=== PATIENT | male | born 1980 | race Native Hawaiian/Other Pacific Islander ===

== ENCOUNTER → 2020-12-12 | Emergency (ER) | payer BC ==
[~2020-12-12] VITALS: Ht 187.9 cm; Wt 100.0 kg
[~2020-12-12] MED LIST: KETOROLAC 60 MG/2 ML VIAL IM ONE; ORPHENADRINE 60 MG/2 ML (NORFLEX) AMP (ED ONLY) IM ONE; PRD20T PO; TRAM-42 PO
--- NOTE | 2020-12-12 14:06 | ED Back Pain ---
General Chief Complaint: Back Problems Stated Complaint: BACK PAIN Nursing Triage Note: Pt ambulatory into ER with complaint of back pain since yesterday. Pt states that he was playing with his big dog and also lifting kids up into tire swing. Pt states that as the day progressed his pain worsened. Pt states that he tried to go to work this AM and wasn't able to tolerate it. Pain at a 9/10. Source of Information: Patient Exam Limitations: No Limitations History of Present Illness Date Seen by Provider: Dec 12, 2020 Time Seen by Provider: 14:05 Initial Comments Midline nonradiating low back pain that began last night. Rates pain 9 out of 10. Does not radiate down either leg. No loss of bowel or bladder control no loss of sensation of genitals no history of IV drug use no history of cancer. Just moved here from [place]. Location: Lumbar Spine, Paraspinous Muscles Timing/Duration: 1-2 Days Severity: Moderate Pain/Injury Location: Back Method of Injury: Unknown Associated Symptoms: denies symptoms Allergies and Home Medications Allergies Coded Allergies: No Known Drug Allergies (Unverified , 12/12/20) Patient Home Medication List Home Medication List Reviewed: Yes Review of Systems Constitutional: see HPI EENTM: see HPI Respiratory: no symptoms reported Cardiovascular: no symptoms reported Genitourinary: no symptoms reported Musculoskeletal: no symptoms reported Skin: no symptoms reported Psychiatric/Neurological: No Symptoms Reported Past Ltyripe-Ilkwye-Rqueyr Hx Patient Social History Tobacco Use?: Yes Tobacco type used: Cigarettes Smoking Status: Current Everyday Smoker Use of E-Cig and/or Vaping dev: No Substance use?: Yes Substance type: Marijuana Alcohol Use?: Yes Alcohol type: Beer Alcohol Frequency: Daily Pt feels they are or have been: No Immunizations Up To Date Influenza Vaccine Up-to-Date: No; Not Current Second COVID19 Vaccination Adiel: 11/28/20 COVID19 Vaccine Composition Molder: Moderna Physical Exam Vital Signs Vital Signs - First Documented 12/12/20 12:52 Temp 36.6 Pulse 76 Resp 18 B/P (MAP) 157/97 (117) Pulse Ox 98 O2 Delivery Room Air Capillary Refill : Less Than 3 Seconds Height, Weight, BMI Height: '" Weight: lbs. oz. kg; 28.00 BMI Method: General Appearance: No Apparent Distress, WD/WN HEENT: PERRL/EOMI, TMs Normal Neck: Full Range of Motion, Normal Inspection Respiratory: No Accessory Muscle Use, No Respiratory Distress Gastrointestinal: Normal Bowel Sounds, Non Tender, Soft Back: Normal Inspection Extremity: Normal Capillary Refill, Normal Inspection Neurologic/Psychiatric: Alert, Oriented x3 Skin: Normal Color, Warm/Dry Progress/Results/Core Measures Results/Orders My Orders Orders - ARNAV CRISTINA APRN Ketorolac Injection (Toradol Injection) (12/12/20 14:00) Orphenadrine Inj (Ed Only) (Norflex Inje (12/12/20 14:00) Lumbar Spine - 2-3 Views (12/12/20 14:04) Medications Given in ED Current Medications Medications Dose Ordered Sig/Cale Route Start Time Stop Time Status Last Admin Dose Admin Ketorolac Tromethamine 60 mg ONCE ONCE IM 12/12/20 14:00 12/12/20 14:01 DC 12/12/20 14:11 60 MG Orphenadrine Citrate 60 mg ONCE ONCE IM 12/12/20 14:00 12/12/20 14:01 DC 12/12/20 14:11 60 MG Vital Signs/I&O 12/12/20 12:52 Temp 36.6 Pulse 76 Resp 18 B/P (MAP) 157/97 (117) Pulse Ox 98 O2 Delivery Room Air Blood Pressure Mean: 117 Departure Impression Primary Impression: Acute low back pain Disposition: 01 HOME, SELF-CARE Condition: Stable Departure-Patient Inst. Decision time for Depature: 14:48 Referrals: NO,LOCAL PHYSICIAN (PCP/Family) Primary Care Physician Patient Instructions: Low Back Pain (DC) Add. Discharge Instructions: 1. Make an appointment with primary care. If pain persist then may wish to order an MRI of the back. Steroids and pain medication as directed in the meantime. All discharge instructions reviewed with patient and/or family. Voiced understanding. 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
--- NOTE | 2020-12-12 14:44 | Diagnostic Imaging Report ---
INDICATION: Low back pain COMPARISON: None TECHNIQUE: 3 views of the lumbar spine FINDINGS: There is slight right convex curvature at the lumbosacral junction, but no spondylolisthesis is seen. Vertebral body heights are preserved. No acute fracture is seen. There are mild degenerative changes at L2-L3. There is mild disc height loss at L4-L5 and L5-S1. No acute fracture seen. Bilateral sacroiliac joints are patent. IMPRESSION: 1. Mild degenerative change in the lumbar spine with no acute osseous abnormality seen. Dictated by: Dictated on workstation # [id number]
[2020-12-12 16:03] VITALS: BP 158/101
== END | disposition home or self-care (01) ==
LOC: EDUNIT# 12:45 → ER 12:48
DX: M54.5 Low back pain (principal); F17.210 Nicotine dependence, cigarettes, uncomplicated
CPT/HCPCS: 72100

== ENCOUNTER 2021-02-17 19:26 | Emergency (ER) | payer BC ==
[~2021-02-17] VITALS: Ht 74 cm; Wt 99.8 kg
[~2021-02-17 19:26] MED LIST changes: -KETOROLAC 60 MG/2 ML VIAL IM ONE; -ORPHENADRINE 60 MG/2 ML (NORFLEX) AMP (ED ONLY) IM ONE
[2021-02-17 19:35] VITALS: BP 129/76
--- NOTE | 2021-02-17 19:41 | ED General ---
General Stated Complaint: LOW BP 95/52 Source of Information: Patient Exam Limitations: No Limitations History of Present Illness Date Seen by Provider: Feb 17, 2021 Time Seen by Provider: 19:36 Initial Comments To ER by private vehicle with reports of hypotension. Patient has a history of hypertension and was recently started on additional blood pressure medication. He takes lisinopril/HCTZ 40/25 mg and was recently started on hydralazine 10 mg 3 times a day. This evening he had a couple shots of 100 proof whiskey and then seemed to become unresponsive. His did CPR on him twice before he regained consciousness. He now feels a little lightheaded. His blood pressure was 95/40 then in the 70s systolic.States he drins at least a pint of alcohol a day. Timing/Duration: 1/2 Hour Severity: Moderate Allergies and Home Medications Allergies Coded Allergies: No Known Drug Allergies (Unverified , 12/12/20) Patient Home Medication List Home Medication List Reviewed: Yes Cefuroxime Axetil (Cefuroxime) 500 Mg Tablet, 500 MG PO BID Prescribed by: ARNAV CRISTINA on 02/17/212106 Potassium Chloride (Potassium Chloride) 20 Meq Tablet.er, 20 MEQ PO DAILY Prescribed by: ARNAV CRISTINA on 02/17/212117 Prednisone (Prednisone) 20 Mg Tab, 40 MG PO DAILY Prescribed by: ARNAV CRISTINA on 12/12/20 1450 Tramadol HCl (Ultram) 50 Mg Tablet, 50 MG PO Q6H PRN for PAIN-MODERATE (5-7) Prescribed by: ARNAV CRISTINA on 12/12/20 1450 Review of Systems Review of Systems Constitutional: see HPI EENTM: see HPI Respiratory: no symptoms reported Cardiovascular: no symptoms reported Genitourinary: no symptoms reported Musculoskeletal: no symptoms reported Skin: no symptoms reported Psychiatric/Neurological: No Symptoms Reported Hematologic/Lymphatic: No Symptoms Reported Immunological/Allergic: no symptoms reported Past Ormuoye-Ptprcm-Rtixck Hx Immunizations Up To Date Second COVID19 Vaccination Adiel: 11/28/20 Physical Exam Vital Signs Vital Signs - First Documented 02/17/21 19:35 Temp 36.7 Pulse 71 Resp 18 B/P (MAP) 129/76 (93) Pulse Ox 98 O2 Delivery Room Air Capillary Refill : Height, Weight, BMI Height: '" Weight: lbs. oz. kg; 28.00 BMI Method: General Appearance: No Apparent Distress, WD/WN, Other (Alert and oriented GCS 15. Pleasant. No distress. Blood pressure 122/88 heart rate 80 sinus no ectopy.) Eyes: Bilateral Eye Normal Inspection, Bilateral Eye PERRL, Bilateral Eye EOMI HEENT: PERRL/EOMI, TMs Normal Neck: Full Range of Motion, Normal Inspection Respiratory: Normal Breath Sounds, No Accessory Muscle Use, No Respiratory Distress Cardiovascular: Regular Rate, Rhythm, Normal Peripheral Pulses Gastrointestinal: Normal Bowel Sounds, Non Tender, Soft Extremity: Normal Capillary Refill, Normal Inspection Neurologic/Psychiatric: Alert, Oriented x3 Progress/Results/Core Measures Suspected Sepsis SIRS Temperature: Pulse: Respiratory Rate: Laboratory Tests 02/17/21 19:35: White Blood Count 7.0 Blood Pressure / Mean: Laboratory Tests 02/17/21 19:35: Creatinine 1.37H, INR Comment 0.9, Platelet Count 257, Total Bilirubin 1.1H Results/Orders Lab Results Laboratory Tests Test 02/17/21 19:35 02/17/21 20:06 Range/Units White Blood Count 7.0 4.3-11.0 10^3/uL Red Blood Count 4.76 4.30-5.52 10^6/uL Hemoglobin 14.9 13.3-17.7 g/dL Hematocrit 43 40-54 % Mean Corpuscular Volume 90 80-99 fL Mean Corpuscular Hemoglobin 31 25-34 pg Mean Corpuscular Hemoglobin Concent 35 32-36 g/dL Red Cell Distribution Width 14.0 10.0-14.5 % Platelet Count 257 130-400 10^3/uL Mean Platelet Volume 11.2 9.0-12.2 fL Immature Granulocyte % (Auto) 0 % Neutrophils (%) (Auto) 51 42-75 % Lymphocytes (%) (Auto) 40 12-44 % Monocytes (%) (Auto) 8 0-12 % Eosinophils (%) (Auto) 1 0-10 % Basophils (%) (Auto) 1 0-10 % Neutrophils # (Auto) 3.6 1.8-7.8 10^3/uL Lymphocytes # (Auto) 2.8 1.0-4.0 10^3/uL Monocytes # (Auto) 0.5 0.0-1.0 10^3/uL Eosinophils # (Auto) 0.0 0.0-0.3 10^3/uL Basophils # (Auto) 0.1 0.0-0.1 10^3/uL Immature Granulocyte # (Auto) 0.0 0.0-0.1 10^3/uL Prothrombin Time 12.7 12.2-14.7 SEC INR Comment 0.9 0.8-1.4 Sodium Level 143 135-145 MMOL/L Potassium Level 2.6 L 3.6-5.0 MMOL/L Chloride Level 99 98-107 MMOL/L Carbon Dioxide Level 27 21-32 MMOL/L Anion Gap 17 H 5-14 MMOL/L Blood Urea Nitrogen 15 7-18 MG/DL Creatinine 1.37 H 0.60-1.30 MG/DL Estimat Glomerular Filtration Rate 57 BUN/Creatinine Ratio 11 Glucose Level 163 H 70-105 MG/DL Calcium Level 9.1 8.5-10.1 MG/DL Corrected Calcium 8.8 8.5-10.1 MG/DL Magnesium Level 2.2 1.6-2.4 MG/DL Total Bilirubin 1.1 H 0.1-1.0 MG/DL Aspartate Amino Transf (AST/SGOT) 33 5-34 U/L Alanine Aminotransferase (ALT/SGPT) 26 0-55 U/L Alkaline Phosphatase 92 40-136 U/L Total Protein 7.0 6.4-8.2 GM/DL Albumin 4.4 3.2-4.5 GM/DL Serum Alcohol < 10 <10 MG/DL Urine Color YELLOW Urine Clarity CLEAR Urine pH 6.0 5-9 Urine Specific [place] 1.025 H 1.016-1.022 Urine Protein 1+ H NEGATIVE Urine Glucose (UA) NEGATIVE NEGATIVE Urine Ketones TRACE H NEGATIVE Urine Nitrite NEGATIVE NEGATIVE Urine Bilirubin 1+ H NEGATIVE Urine Urobilinogen 1.0 < = 1.0 MG/DL Urine Leukocyte Esterase TRACE H NEGATIVE Urine RBC (Auto) NEGATIVE NEGATIVE Urine RBC RARE /HPF Urine WBC 5-10 H /HPF Urine Crystals NONE /LPF Urine Bacteria TRACE /HPF Urine Casts PRESENT /LPF Urine Hyaline Casts 5-10 H /LPF Urine Mucus MODERATE H /LPF Urine Culture Indicated YES My Orders Orders - ARNAV CRISTINA [employer] Cbc With Automated Diff (02/17/21 19:35) Comprehensive Metabolic Panel (02/17/21 19:35) Alcohol (02/17/21 19:35) Protime With Inr (02/17/21 19:35) Ua Culture If Indicated (02/17/21 19:35) Ekg Tracing (02/17/21 19:35) Ed Iv/Invasive Line Start (02/17/21 19:35) Magnesium (02/17/21 20:08) Potassium Cl 10meq/50ml Ivpb (Kcl 10 Meq (02/17/21 20:15) Potassium Chloride (Tablet) (Klor Con Ta (02/17/21 20:15) Ns Iv 500 Ml (Sodium Chloride 0.9%) (02/17/21 20:15) Ondansetron Injection (Zofran Injectio (02/17/21 20:30) Urine Culture (02/17/21 20:06) Medications Given in ED Current Medications Medications Dose Ordered Sig/Cale Route Start Time Stop Time Status Last Admin Dose Admin Ondansetron HCl 4 mg ONCE ONCE IVP 02/17/21 20:30 02/17/21 20:31 DC 02/17/21 20:30 4 MG Potassium Chloride 10 meq ONCE ONCE PO 02/17/21 20:15 02/17/21 20:16 DC 02/17/21 20:29 10 MEQ Potassium Chloride 50 ml @ 50 mls/hr ONCE ONCE IV 02/17/21 20:15 02/17/21 21:14 DC 02/17/21 20:29 50 MLS/HR Vital Signs/I&O 02/17/21 19:35 Temp 36.7 Pulse 71 Resp 18 B/P (MAP) 129/76 (93) Pulse Ox 98 O2 Delivery Room Air Capillary Refill : Departure Communication (Admissions) 2036-BP still 119/82. 2105-EKG shows sinus rhythm no ectopy no ST segment change Impression Primary Impression: UTI (urinary tract infection) Additional Impressions: Hypokalemia Syncope Transient hypotension Disposition: 01 HOME, SELF-CARE Condition: Stable Departure-Patient Inst. Decision time for Depature: 21:06 Referrals: NO,LOCAL PHYSICIAN (PCP) Primary Care Physician Patient Instructions: Urinary Tract Infection, Adult ED, Low Blood Pressure (DC) Add. Discharge Instructions: 1. I would stop the hydralazine. Return to ER for any worsening. Follow-up with your doctor next week. Antibiotic as directed. Scripts Potassium Chloride (Potassium Chloride) 20 Meq Tablet.er 20 MEQ PO DAILY, #10 TAB Prov: ARNAV CRISTINA APRN 02/17/21 Cefuroxime Axetil (Cefuroxime) 500 Mg Tablet 500 MG PO BID, #14 TAB Prov: ARNAV CRISTINA APRN 02/17/21 ARNAV CRISTINA APRN Feb 17, 2021 19:41
[2021-02-17 19:48] LABS: BASOPHILS # (AUTO) 0.1 10^3/uL (0.0-0.1); BASOPHILS % (AUTO) 1 % (0-10); EOSINOPHILS % (AUTO) 1 % (0-10); HEMATOCRIT 43 % (40-54); HEMOGLOBIN 14.9 g/dL (13.3-17.7); LYMPHOCYTES # (AUTO) 2.8 10^3/uL (1.0-4.0); LYMPHOCYTES % (AUTO) 40 % (12-44); MEAN CORPUSCULAR HEMOGLOBIN 31 pg (25-34); MEAN CORPUSCULAR HGB CONC 35 g/dL (32-36); MEAN CORPUSCULAR VOLUME 90 fL (80-99); MEAN PLATELET VOLUME 11.2 fL (9.0-12.2); MONOCYTES # (AUTO) 0.5 10^3/uL (0.0-1.0); MONOCYTES % (AUTO) 8 % (0-12); NEUTROPHILS # (AUTO) 3.6 10^3/uL (1.8-7.8); NEUTROPHILS % (AUTO) 51 % (42-75); PLATELET COUNT 257 10^3/uL (130-400)
[2021-02-17 20:01] LABS: INR 0.9 (0.8-1.4); PROTHROMBIN TIME PATIENT 12.7 SEC (12.2-14.7)
[2021-02-17 20:04] LABS: ALANINE AMINOTRANSFERASE 26 U/L (0-55); ALBUMIN 4.4 GM/DL (3.2-4.5); ALKALINE PHOSPHATASE 92 U/L (40-136); BILIRUBIN,TOTAL 1.1 MG/DL (0.1-1.0); BUN/CREATININE RATIO 11; CALCIUM 9.1 MG/DL (8.5-10.1); CARBON DIOXIDE 27 MMOL/L (21-32); CHLORIDE 99 MMOL/L (98-107); CREATININE SERUM 1.37 MG/DL (0.60-1.30); GFR ESTIMATED 57; GLUCOSE 163 MG/DL (70-105); POTASSIUM 2.6 MMOL/L (3.6-5.0); SODIUM 143 MMOL/L (135-145)
[2021-02-17 20:11] LABS: CLARITY,URINE CLEAR; COLOR,URINE YELLOW; GLUCOSE, URINE (UA) NEGATIVE (NEGATIVE); KETONES,URINE TRACE (NEGATIVE); LEUKOCYTE ESTERASE ,URINE TRACE (NEGATIVE); NITRITE,URINE NEGATIVE (NEGATIVE); PROTEIN,URINE 1+ (NEGATIVE)
[2021-02-17] MEDS ORDERED: NS IV 500 ML 500 ML IV SCH (20:15)
[2021-02-17] MEDS ORDERED: POTASSIUM CL 10MEQ/50ML IVPB 50 ML IV ONE (20:15)
[2021-02-17] MEDS ORDERED: KCL 10 MEQ TAB (MICRO K) PO ONE (20:15)
[2021-02-17 20:29] LABS: BACTERIA,URINE TRACE /HPF; BILIRUBIN,URINE 1+ (NEGATIVE); RBC,URINE RARE /HPF
[2021-02-17] MEDS ORDERED: ONDANSETRON 4 MG/2 ML (SDV) Z0FRAN IVP ONE (20:30)
[2021-02-17] MEDS ORDERED: CEFU500T63 PO (21:07)
[2021-02-17] MEDS ORDERED: POTA-51 PO (21:18)
== END 2021-02-17 21:37 | disposition home or self-care (01) ==
LOC: EDUNIT# 19:26 → ER 19:28
DX: N39.0 Urinary tract infection, site not specified (principal); E87.6 Hypokalemia; R55 Syncope and collapse; I95.9 Hypotension, unspecified; Z79.52 Long term (current) use of systemic steroids
CPT/HCPCS: 80053; 81000; 83735; 85025; 85610; 87088; 93005; 99284; G0480; 36415; 80320

== ENCOUNTER → 2021-03-07 | Outpatient (CLI) | payer BC ==
[~2021-03-07] MED LIST changes: +CEFU500T63 PO; +POTA-51 PO
== END ==
LOC: CARD 09:30
PROVIDERS: ATTEND Internal Medicine Cardiovascular Disease
DX: I51.7 Cardiomegaly (principal); I34.0 Nonrheumatic mitral (valve) insufficiency
CPT/HCPCS: 93225; 93226; 93306

== ENCOUNTER → 2021-03-17 | Outpatient (CLI) | payer BC ==
[~2021-03-17] MED LIST changes: +ACHD5005 PO; +NF-METHYLP PO; +TIZA4CAP8 PO
== END ==
LOC: RAD 14:45
PROVIDERS: ATTEND Nurse Practitioner Family
DX: M54.17 Radiculopathy, lumbosacral region (principal); M99.03 Segmental and somatic dysfunction of lumbar region

== ENCOUNTER 2021-03-19 13:26 | Emergency (ER) | payer BC ==
[~2021-03-19] VITALS: Ht 188 cm; Wt 100.0 kg
[~2021-03-19 13:26] MED LIST changes: -ACHD5005 PO; -NF-METHYLP PO; -TIZA4CAP8 PO
[2021-03-19 13:43] VITALS: BP 164/114
[2021-03-19] MEDS ORDERED: ACHD5005 PO (21:15)
[2021-03-19] MEDS ORDERED: NF-METHYLP PO (21:15)
[2021-03-19] MEDS ORDERED: TIZA4CAP8 PO (21:15)
== END 2021-03-19 14:30 | disposition left against medical advice (07) ==
LOC: EDUNIT# 13:26 → ER 13:27
DX: M54.50 Low back pain, unspecified (principal)
CPT/HCPCS: 99281

== ENCOUNTER 2021-03-19 20:36 | Emergency (ER) | payer BC ==
[~2021-03-19] VITALS: Ht 188 cm; Wt 100.0 kg
[2021-03-19 20:55] VITALS: BP 170/114
--- NOTE | 2021-03-19 21:14 | ED Back Pain ---
General Chief Complaint: Back Problems Stated Complaint: BACK PAIN/R FOOT NUMB History of Present Illness Date Seen by Provider: Mar 19, 2021 Time Seen by Provider: 21:09 Initial Comments Patient is a 40-year-old male presents ED low back pain. Patient reports pain over the past 2 months. Patient noted Saturday having numbness and tingling radiating down to his right foot on the medial side, right lateral calf and right lateral hip. Patient had a scheduled outpatient MRI here at [facility] but was not able to perform the procedure secondary to the pain. Currently on meloxicam and lidocaine patch without much improvement. Denies any bowel or urine continence, saddle paresthesia. Denies of any specific trauma. Denies chest pain, shortness of breath, fever, chills, drug use. Allergies and Home Medications Allergies Coded Allergies: No Known Drug Allergies (Unverified , 12/12/20) Patient Home Medication List Home Medication List Reviewed: Yes Cefuroxime Axetil (Cefuroxime) 500 Mg Tablet, 500 MG PO BID Prescribed by: ARNAV CRISTINA on 02/17/212106 Hydrocodone/Acetaminophen (Hydrocodone-Acetamin 5-325 mg) 1 Each Tablet, 1 TAB PO Q4H PRN for PAIN-MODERATE (5-7) Prescribed by: CELINE RENE on 03/19/212114 Methylprednisolone (Medrol Dose pack) 4 Mg Tab, 4 MG PO UD Prescribed by: CELINE RENE on 03/19/212114 Potassium Chloride (Potassium Chloride) 20 Meq Tablet.er, 20 MEQ PO DAILY Prescribed by: ARNAV CRISTINA on 02/17/212117 Prednisone (Prednisone) 20 Mg Tab, 40 MG PO DAILY Prescribed by: ARNAV CRISTINA on 12/12/20 145 Tizanidine HCl (Tizanidine HCl) 4 Mg Capsule, 4 MG PO TID Prescribed by: CELINE RENE on 03/19/212114 Tramadol HCl (Ultram) 50 Mg Tablet, 50 MG PO Q6H PRN for PAIN-MODERATE (5-7) Prescribed by: ARNAV CRISTINA on 12/12/20 145 Review of Systems Constitutional: No chills, No diaphoresis EENTM: No hearing loss, No ear pain Respiratory: No cough, No short of breath Cardiovascular: No chest pain Gastrointestinal: No abdominal pain, No diarrhea, No nausea, No vomiting Genitourinary: No discharge Musculoskeletal: back pain; No joint pain, No muscle pain Skin: No change in color, No change in hair/nails Psychiatric/Neurological: Numbness All Other Systems Reviewed Negative Unless Noted: Yes Past Nmxhcuq-Crhgej-Jxxoju Hx Patient Social History Tobacco Use?: Yes Tobacco type used: Cigarettes Smoking Status: Current Everyday Smoker Use of E-Cig and/or Vaping dev: No Substance use?: Yes Substance type: Marijuana Alcohol Use?: Yes Alcohol type: Hard Liquor Alcohol Frequency: Daily Pt feels they are or have been: No Immunizations Up To Date Influenza Vaccine Up-to-Date: No; Not Current First/Initial COVID19 Vaccinat: 10/2020 Second COVID19 Vaccination Adiel: 11/2020 COVID19 Vaccine Internet Marketing Intern: NIRMALA Physical Exam Vital Signs Vital Signs - First Documented 03/19/21 20:55 Temp 36.2 Pulse 57 Resp 22 B/P (MAP) 170/114 (132) Pulse Ox 99 O2 Delivery Room Air Capillary Refill : Height, Weight, BMI Height: '" Weight: lbs. oz. kg; 28.00 BMI Method: General Appearance: No Apparent Distress, WD/WN HEENT: PERRL/EOMI, TMs Normal, Normal ENT Inspection, Pharynx Normal Neck: Full Range of Motion, Normal Inspection, Non Tender, Supple Cardiovascular: Regular Rate, Rhythm, No Edema, No Gallop, No Murmur Respiratory: Chest Non Tender, Lungs Clear, Normal Breath Sounds, No Accessory Muscle Use Gastrointestinal: Normal Bowel Sounds, No Organomegaly, No Pulsatile Mass, Non Tender Back: No CVA Tenderness, Vertebral Tenderness Extremity: Other (Positive straight leg raise right leg. Neurovascularly intact. Normal active range of motion bilateral ankles. Neurovascular intact) Neurologic/Psychiatric: Alert, Oriented x3, No Motor/Sensory Deficits, Normal Mood/Affect, inspector screen printing II-XII Norm as Tested Progress/Results/Core Measures Results/Orders My Orders Orders - HESHAM BURNS Ketorolac Injection (Toradol Injection) (03/19/21 21:15) Orphenadrine Inj (Ed Only) (Norflex Inje (03/19/21 21:15) Hydrocodone/Apap 5/325 Tablet (Lortab 5 (03/19/21 21:15) Medications Given in ED Current Medications Medications Dose Ordered Sig/Cale Route Start Time Stop Time Status Last Admin Dose Admin Acetaminophen/ Hydrocodone Bitart 1 ea ONCE ONCE PO 03/19/21 21:15 03/19/21 21:16 DC 03/19/21 21:17 1 EA Ketorolac Tromethamine 60 mg ONCE ONCE IM 03/19/21 21:15 03/19/21 21:16 DC 03/19/21 21:18 60 MG Orphenadrine Citrate 60 mg ONCE ONCE IM 03/19/21 21:15 03/19/21 21:16 DC 03/19/21 21:18 60 MG Vital Signs/I&O 03/19/21 20:55 Temp 36.2 Pulse 57 Resp 22 B/P (MAP) 170/114 (132) Pulse Ox 99 O2 Delivery Room Air Departure Communication (Admissions) No neurological red flag findings. Positive straight leg raise right leg. Concerning for bulging disc. No falls suggesting fracture. Had a recent x-ray of the lumbar spine negative for acute fracture.. Afebrile. Denies any drug u se. Patient scheduled to follow-up with outpatient MRI. Patient requesting pain medication. Was given a dose of pain medication here. Will discharge with few days worth of pain medication, tizanidine and Medrol Dosepak. Recommend outpatient follow-up. If any worsening symptoms such as bowel or urine incontinence, saddle paresthesia, lower extremity weakness to return back to ED for further evaluation. Impression Primary Impression: Back pain Disposition: 01 HOME, SELF-CARE Condition: Stable Departure-Patient Inst. Decision time for Depature: 21:11 Referrals: WILLOW BLANC APRN (PCP/Family) Primary Care Physician Patient Instructions: Low Back Pain (DC) Add. Discharge Instructions: All discharge instructions reviewed with patient and/or family. Voiced understanding. Scripts Hydrocodone/Acetaminophen (Hydrocodone-Acetamin 5-325 mg) 1 Each Tablet 1 TAB PO Q4H PRN for PAIN-MODERATE (5-7), #10 TAB Prov: HESHAM BURNS 03/19/21 Tizanidine HCl (Tizanidine HCl) 4 Mg Capsule 4 MG PO TID, #20 CAP Prov: HESHAM BURNS 03/19/21 Methylprednisolone (Medrol Dose pack) 4 Mg Tab 4 MG PO UD for 6 Days, #21 TAB as directed per dose pack Prov: HESHAM BURNS 03/19/21 Work/School Note: Family Work Note, Work Release Form Date Seen in the Emergency Department: Mar 19, 2021 Return to Work: Mar 22, 2021 HESHAM BURNS Mar 19, 2021 21:14
[2021-03-19] MEDS ORDERED: KETOROLAC 60 MG/2 ML VIAL IM ONE (21:15)
[2021-03-19] MEDS ORDERED: ORPHENADRINE 60 MG/2 ML (NORFLEX) AMP (ED ONLY) IM ONE (21:15)
[2021-03-19] MEDS ORDERED: HYDROcodone/APAP 5 MG/325 MG (LORTAB) TAB PO ONE (21:15)
[2021-03-19] MEDS ORDERED: TIZA4CAP8 PO (21:15)
[2021-03-19] MEDS ORDERED: NF-METHYLP PO (21:15)
[2021-03-19] MEDS ORDERED: ACHD5005 PO (21:15)
== END 2021-03-19 21:28 | disposition home or self-care (01) ==
LOC: EDUNIT# 20:36 → ER 20:37
DX: M54.50 Low back pain, unspecified (principal); F17.210 Nicotine dependence, cigarettes, uncomplicated
CPT/HCPCS: 99284

== ENCOUNTER 2021-04-09 18:24 | Emergency (ER) | payer BC ==
[~2021-04-09] VITALS: Ht 188 cm; Wt 100.0 kg
[~2021-04-09 18:24] MED LIST changes: +ACHD5005 PO; +NF-METHYLP PO; +TIZA4CAP8 PO
[2021-04-09 18:38] LABS: BASOPHILS # (AUTO) 0.2 10^3/uL (0.0-0.1); BASOPHILS % (AUTO) 1 % (0-10); EOSINOPHILS # (AUTO) 0.2 10^3/uL (0.0-0.3); EOSINOPHILS % (AUTO) 1 % (0-10); HEMATOCRIT 46 % (40-54); HEMOGLOBIN 15.2 g/dL (13.3-17.7); LYMPHOCYTES % (AUTO) 45 % (12-44); MEAN CORPUSCULAR HEMOGLOBIN 31 pg (25-34); MEAN CORPUSCULAR HGB CONC 33 g/dL (32-36); MEAN CORPUSCULAR VOLUME 94 fL (80-99); MEAN PLATELET VOLUME 11.9 fL (9.0-12.2); MONOCYTES % (AUTO) 9 % (0-12); NEUTROPHILS # (AUTO) 4.9 10^3/uL (1.8-7.8); NEUTROPHILS % (AUTO) 43 % (42-75); PLATELET COUNT 304 10^3/uL (130-400); WHITE BLOOD COUNT 11.3 10^3/uL (4.3-11.0)
[2021-04-09 18:57] LABS: ALBUMIN 4.4 GM/DL (3.2-4.5); POTASSIUM 2.9 MMOL/L (3.6-5.0)
[2021-04-09 18:59] LABS: CALCIUM 9.5 MG/DL (8.5-10.1)
[2021-04-09 19:02] LABS: BILIRUBIN,TOTAL 1.8 MG/DL (0.1-1.0)
[2021-04-09 19:04] LABS: CREATININE SERUM 1.36 MG/DL (0.60-1.30)
--- NOTE | 2021-04-09 19:10 | ED General ---
General Chief Complaint: General Problems/Pain Stated Complaint: SOB Source of Information: Patient Exam Limitations: No Limitations (ARNAV CRISTINA APRN) History of Present Illness Date Seen by Provider: Apr 09, 2021 Time Seen by Provider: 19:08 Initial Comments To ER by private vehicle with reports of being unresponsive. Is brought to ER by his . He drank half pint of vodka this evening and took some Lyrica. Timing/Duration: 1-2 Days Severity: Moderate (ARNAV CRISTINA APRN) Allergies and Home Medications Allergies Coded Allergies: No Known Drug Allergies (Unverified , 12/12/20) Patient Home Medication List Home Medication List Reviewed: Yes (ARNAV CRISTINA APRN) Cefuroxime Axetil (Cefuroxime) 500 Mg Tablet, 500 MG PO BID Prescribed by: ARNAV CRISTINA on 02/17/212106 Hydrocodone/Acetaminophen (Hydrocodone-Acetamin 5-325 mg) 1 Each Tablet, 1 TAB PO Q4H PRN for PAIN-MODERATE (5-7) Prescribed by: CELINE RENE on 03/19/212114 Methylprednisolone (Medrol Dose pack) 4 Mg Tab, 4 MG PO UD Prescribed by: CELINE RENE on 03/19/212114 Potassium Chloride (Potassium Chloride) 20 Meq Tablet.er, 20 MEQ PO DAILY Prescribed by: ARNAV CRISTINA on 02/17/212117 Prednisone (Prednisone) 20 Mg Tab, 40 MG PO DAILY Prescribed by: ARNAV CRISTINA on 12/12/201449 Tizanidine HCl (Tizanidine HCl) 4 Mg Capsule, 4 MG PO TID Prescribed by: CELINE RENE on 03/19/212114 Tramadol HCl (Ultram) 50 Mg Tablet, 50 MG PO Q6H PRN for PAIN-MODERATE (5-7) Prescribed by: ARNAV CRISTINA on 12/12/20 145 Review of Systems Review of Systems Constitutional: see HPI EENTM: see HPI Respiratory: no symptoms reported Cardiovascular: no symptoms reported Genitourinary: no symptoms reported Musculoskeletal: no symptoms reported Skin: no symptoms reported Psychiatric/Neurological: No Symptoms Reported Hematologic/Lymphatic: No Symptoms Reported (ARNAV CRISTINA APRN) Past Jkcldwp-Bgpuer-Rhfnym Hx Patient Social History Tobacco Use?: Yes Tobacco type used: Cigarettes Smoking Status: Current Everyday Smoker Use of E-Cig and/or Vaping dev: No Substance use?: Yes Substance type: Marijuana Alcohol Use?: Yes Alcohol type: Hard Liquor (ARNAV CRISTINA APRN) Immunizations Up To Date First/Initial COVID19 Vaccinat: OCTOBER 2020 Second COVID19 Vaccination Adiel: NOVEMBER 2020 COVID19 Vaccine 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 oz. kg; 28.00 BMI Method: General Appearance: No Apparent Distress, WD/WN, Other (Altering mental status, he'll go from periods of apnea with SPO2 declining to about 75% and then he'll wake up with painful stimuli alert talkative and then go back to sleep.) Eyes: Bilateral Eye Normal Inspection, Bilateral Eye PERRL, Bilateral Eye EOMI HEENT: Other (Pinpoint pupils) Neck: Full Range of Motion, Normal Inspection Cardiovascular: Regular Rate, Rhythm, Normal Peripheral Pulses Gastrointestinal: Normal Bowel Sounds, Non Tender, Soft Extremity: Normal Capillary Refill, Normal Inspection Neurologic/Psychiatric: Alert, Oriented x3 Skin: Normal Color, Warm/Dry (ARNAV CRISTINA APRN) Progress/Results/Core Measures Suspected Sepsis SIRS Temperature: Pulse: Respiratory Rate: Laboratory Tests 04/09/21 18:25: White Blood Count 11.3H Blood Pressure / Mean: Laboratory Tests 04/09/21 18:25: Creatinine 1.36H, Platelet Count 304, Total Bilirubin 1.8H (ARNAV CRISTINA APRN) Results/Orders Lab Results Laboratory Tests Test 04/09/21 18:25 04/09/21 18:29 04/09/21 20:00 Range/Units White Blood Count 11.3 H 4.3-11.0 10^3/uL Red Blood Count 4.86 4.30-5.52 10^6/uL Hemoglobin 15.2 13.3-17.7 g/dL Hematocrit 46 40-54 % Mean Corpuscular Volume 94 80-99 fL Mean Corpuscular Hemoglobin 31 25-34 pg Mean Corpuscular Hemoglobin Concent 33 32-36 g/dL Red Cell Distribution Width 13.2 10.0-14.5 % Platelet Count 304 130-400 10^3/uL Mean Platelet Volume 11.9 9.0-12.2 fL Immature Granulocyte % (Auto) 0 % Neutrophils (%) (Auto) 43 42-75 % Lymphocytes (%) (Auto) 45 H 12-44 % Monocytes (%) (Auto) 9 0-12 % Eosinophils (%) (Auto) 1 0-10 % Basophils (%) (Auto) 1 0-10 % Neutrophils # (Auto) 4.9 1.8-7.8 10^3/uL Lymphocytes # (Auto) 5.0 H 1.0-4.0 10^3/uL Monocytes # (Auto) 1.0 0.0-1.0 10^3/uL Eosinophils # (Auto) 0.2 0.0-0.3 10^3/uL Basophils # (Auto) 0.2 H 0.0-0.1 10^3/uL Immature Granulocyte # (Auto) 0.0 0.0-0.1 10^3/uL Sodium Level 144 135-145 MMOL/L Potassium Level 2.9 L 3.6-5.0 MMOL/L Chloride Level 97 L 98-107 MMOL/L Carbon Dioxide Level 28 21-32 MMOL/L Anion Gap 19 H 5-14 MMOL/L Blood Urea Nitrogen 14 7-18 MG/DL Creatinine 1.36 H 0.60-1.30 MG/DL Estimat Glomerular Filtration Rate 58 BUN/Creatinine Ratio 10 Glucose Level 105 70-105 MG/DL Calcium Level 9.5 8.5-10.1 MG/DL Corrected Calcium 9.2 8.5-10.1 MG/DL Total Bilirubin 1.8 H 0.1-1.0 MG/DL Aspartate Amino Transf (AST/SGOT) 46 H 5-34 U/L Alanine Aminotransferase (ALT/SGPT) 32 0-55 U/L Alkaline Phosphatase 93 40-136 U/L Total Protein 7.0 6.4-8.2 GM/DL Albumin 4.4 3.2-4.5 GM/DL Serum Alcohol 49 H <10 MG/DL Glucometer 105 70-110 MG/DL Urine Color YELLOW Urine Clarity CLEAR Urine pH 7.0 5-9 Urine Specific [place] 1.015 L 1.016-1.022 Urine Protein NEGATIVE NEGATIVE Urine Glucose (UA) NEGATIVE NEGATIVE Urine Ketones NEGATIVE NEGATIVE Urine Nitrite NEGATIVE NEGATIVE Urine Bilirubin NEGATIVE NEGATIVE Urine Urobilinogen 1.0 < = 1.0 MG/DL Urine Leukocyte Esterase NEGATIVE NEGATIVE Urine RBC (Auto) NEGATIVE NEGATIVE Urine RBC NONE /HPF Urine WBC 0-2 /HPF Urine Crystals NONE /LPF Urine Bacteria TRACE /HPF Urine Casts PRESENT /LPF Urine Hyaline Casts 2-5 H /LPF Urine Mucus SMALL H /LPF Urine Culture Indicated NO Urine Opiates Screen NEGATIVE NEGATIVE Urine Oxycodone Screen NEGATIVE NEGATIVE Urine Methadone Screen NEGATIVE NEGATIVE Urine Propoxyphene Screen NEGATIVE NEGATIVE Urine Barbiturates Screen NEGATIVE NEGATIVE Ur Tricyclic Antidepressants Screen NEGATIVE NEGATIVE Urine Phencyclidine Screen NEGATIVE NEGATIVE Urine Amphetamines Screen NEGATIVE NEGATIVE Urine Methamphetamines Screen NEGATIVE NEGATIVE Urine Benzodiazepines Screen NEGATIVE NEGATIVE Urine Cocaine Screen NEGATIVE NEGATIVE Urine Cannabinoids Screen POSITIVE H NEGATIVE (JAYSHREE BAUTISTA MD) Vital Signs/I&O 04/09/21 04/09/21 18:25 21:19 Temp 36.6 Pulse 77 67 Resp 20 14 B/P (MAP) 115/65 (82) 110/76 Pulse Ox 95 94 O2 Delivery Room Air Room Air (JAYSHREE BAUTISTA MD) Vital Signs/I&O Capillary Refill : (ARNAV CRISTINA APRN) Departure Communication (Admissions) 2489-alert and oriented at this time blood pressure 106/61 heart rate 58 sinus. He states that he did take a Lyrica 75 mg tablet. He has been out of it and off of it for the past year. This evening he took 1 of these that he had leftover and found in an old pill bottle. He had that with some alcohol and is likely the cause of his excessive sedation. The girlfriend is at the bedside and states that for the past 30 minutes or so he seems back to normal. He states that he is ready and wants to go home now. (ARNAV CRISTINA APRN) Impression Primary Impression: Excessive sedation Disposition: 01 HOME, SELF-CARE Condition: Stable Departure-Patient Inst. Decision time for Depature: 20:34 (ARNAV CRISTINA APRN) Referrals: NO,LOCAL PHYSICIAN (PCP) Primary Care Physician WILLOW BLANC APRN (Family) Primary Care Physician Patient Instructions: NO INSTRUCTIONS GIVEN ATTENDING PHYSICIAN NOTE: I was physically present as attending physician in the emergency department during the care of this patient, but I was not directly involved in the decision making or delivery of care for this patient. (JAYSHREE BAUTISTA MD) ARNAV CRISTINA APRN Apr 09, 2021 19:10 JAYSHREE BAUTISTA MD Apr 10, 2021 07:35
[2021-04-09] MEDS ORDERED: NALOXONE 0.4 MG/ML 1 ML (NARCAN) VIAL IV ONE (19:15)
[2021-04-09] MEDS ORDERED: LACTATED RINGERS 1,000 ML IV SCH (20:00)
[2021-04-09 20:13] LABS: BILIRUBIN,URINE NEGATIVE (NEGATIVE); CLARITY,URINE CLEAR; COLOR,URINE YELLOW; GLUCOSE, URINE (UA) NEGATIVE (NEGATIVE); KETONES,URINE NEGATIVE (NEGATIVE); LEUKOCYTE ESTERASE ,URINE NEGATIVE (NEGATIVE); NITRITE,URINE NEGATIVE (NEGATIVE); PROTEIN,URINE NEGATIVE (NEGATIVE)
[2021-04-09 20:31] LABS: AMPHETAMINE SCREEN, URINE NEGATIVE (NEGATIVE); BARBITURATE SCREEN URINE NEGATIVE (NEGATIVE); BENZODIAZEPINES SCREEN URINE NEGATIVE (NEGATIVE); CANNABINOID SCREEN, URINE POSITIVE (NEGATIVE); COCAINE SCREEN URINE NEGATIVE (NEGATIVE); METHADONE STAT NEGATIVE (NEGATIVE); METHAMPHETAMINE SCREEN URINE S NEGATIVE (NEGATIVE); OPIATE SCREEN URINE NEGATIVE (NEGATIVE); OXYCODONE STAT NEGATIVE (NEGATIVE); PROPOXYPHENE STAT NEGATIVE (NEGATIVE); TRICYCLIC ANTIDEPRESSANTS SCRE NEGATIVE (NEGATIVE)
[2021-04-09 20:32] LABS: BACTERIA,URINE TRACE /HPF; WBC,URINE 0-2 /HPF
[2021-04-09 21:19] VITALS: BP 110/76
== END 2021-04-09 21:19 | disposition home or self-care (01) ==
LOC: EDUNIT# 18:24 → ER 18:26
DX: F13.982 Sedative, hypnotic or anxiolytic use, unspecified with sedative, hypnotic or anxiolytic-induced sleep disorder (principal); F10.10 Alcohol abuse, uncomplicated; F17.210 Nicotine dependence, cigarettes, uncomplicated; Y90.0 Blood alcohol level of less than 20 mg/100 ml
CPT/HCPCS: 80053; 80306; 81000; 82947; 85025; 99284; G0480; 36415; 80320

== ENCOUNTER 2022-06-27 10:27 | Emergency (ER) | payer BC ==
[~2022-06-27] VITALS: Ht 182 cm; Wt 102.0 kg
--- NOTE | 2022-06-27 10:37 | ED General ---
General Chief Complaint: Psych/Social Disorder Stated Complaint: BLACKING OUT Source of Information: Patient Exam Limitations: Physical Impairments (hyperventilating) History of Present Illness Date Seen by Provider: Jun 27, 2022 Time Seen by Provider: 08:25 Initial Comments Patient is a 41-year-old male who presents to the emergency room today with a chief complaint of shortness of breath, palpitations, feeling like he was going to pass out. 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 He states his heart started racing and he became very anxious. He has had 2 prior episodes of syncope where his had to give him "cmagc-uv-balva". He was afraid that something like this was happening again. The first episode he declined ambulance transfer and the second episode he also declined. He has seen cardiology and outpatient follow-up. No known cardiac diseases. He recently had "stomach flu" and today was his first day back to [facility]. He is complaining of pain and cramping in his hands, tingling in his hands and feet. He is quite agitated and breathing shallow and rapidly. Denies chest pain. Denies fevers. Very difficult to redirect and soothe. Timing/Duration: 1-3 Hours Severity: Severe Associated Systoms: Shortness of Air, Weakness, Other (hands cramping and arms cramping feel "numb") Allergies and Home Medications Allergies Coded Allergies: No Known Drug Allergies (Unverified , 12/12/20) Patient Home Medication List Home Medication List Reviewed: Yes Discontinued Medications Cefuroxime Axetil (Cefuroxime) 500 Mg Tablet, 500 MG PO BID Discontinued Reason: No Longer Taking Prescribed by: ARNAV CRISTINA on 02/17/212106 Last Action: Discontinued Hydrocodone/Acetaminophen (Hydrocodone-Acetamin 5-325 mg) 1 Each Tablet, 1 TAB P O Q4H PRN for PAIN-MODERATE (5-7) Discontinued Reason: No Longer Taking Prescribed by: CELINE RENE on 03/19/212114 Last Action: Discontinued Methylprednisolone (Medrol Dose pack) 4 Mg Tab, 4 MG PO UD Discontinued Reason: No Longer Taking Prescribed by: CELINE RENE on 03/19/212114 Last Action: Discontinued Potassium Chloride (Potassium Chloride) 20 Meq Tablet.er, 20 MEQ PO DAILY Discontinued Reason: No Longer Taking Prescribed by: ARNAV CRISTINA on 02/17/212117 Last Action: Discontinued Prednisone (Prednisone) 20 Mg Tab, 40 MG PO DAILY Discontinued Reason: No Longer Taking Prescribed by: ARNAV CRISTINA on 12/12/201449 Last Action: Discontinued Tizanidine HCl (Tizanidine HCl) 4 Mg Capsule, 4 MG PO TID Discontinued Reason: No Longer Taking Prescribed by: CELINE RENE on 03/19/212114 Last Action: Discontinued Tramadol HCl (Ultram) 50 Mg Tablet, 50 MG PO Q6H PRN for PAIN-MODERATE (5-7) Discontinued Reason: No Longer Taking Prescribed by: ARNAV CRISTINA on 12/12/201449 Last Action: Discontinued Review of Systems Review of Systems Constitutional: see HPI EENTM: no symptoms reported Respiratory: short of breath Cardiovascular: no symptoms reported Gastrointestinal: no symptoms reported Musculoskeletal: muscle pain Skin: no symptoms reported Psychiatric/Neurological: Anxiety All Other Systems Reviewed Negative Unless Noted: Yes Past Ffhfmli-Usrsty-Bziedh Hx Immunizations Up To Date First/Initial COVID19 Vaccinat: OCTOBER 2020 Second COVID19 Vaccination Adiel: NOVEMBER 2020 Physical Exam Vital Signs Vital Signs - First Documented 06/27/22 10:28 Temp 36.3 Pulse 71 Resp 16 B/P (MAP) 136/113 (121) Pulse Ox 96 O2 Delivery Room Air Capillary Refill : Height, Weight, BMI Height: '" Weight: lbs. oz. kg; 28.00 BMI Method: General Appearance: WD/WN, Anxious, Severe Distress, Thin Eyes: Bilateral Eye Normal Inspection, Bilateral Eye PERRL, Bilateral Eye EOMI HEENT: PERRL/EOMI Neck: Normal Inspection Respiratory: Lungs Clear, Normal Breath Sounds, No Accessory Muscle Use, No Respiratory Distress, Other Cardiovascular: Regular Rate, Rhythm (80's), Normal Peripheral Pulses Gastrointestinal: Soft (Tachypneic, short shallow rapid respirations), Guarding (Voluntary guarding) Extremity: No Pedal Edema, Other (Carpopedal spasm noted to both hands) Neurologic/Psychiatric: Alert, Oriented x3, No Motor/Sensory 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, 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 Norm as Tested, Other (Severely anxious, panic attack) Skin: Normal Color, Warm/Dry Progress/Results/Core Measures Suspected Sepsis SIRS Temperature: Pulse: Respiratory Rate: Laboratory Tests 06/27/22 10:30: White Blood Count 6.9 Blood Pressure / Mean: Laboratory Tests 06/27/22 10:30: Creatinine 1.11, Platelet Count 161 Results/Orders Lab Results Laboratory Tests Test 06/27/22 10:30 Range/Units White Blood Count 6.9 4.3-11.0 10^3/uL Red Blood Count 5.28 4.30-5.52 10^6/uL Hemoglobin 16.6 13.3-17.7 g/dL Hematocrit 47 40-54 % Mean Corpuscular Volume 89 80-99 fL Mean Corpuscular Hemoglobin 31 25-34 pg Mean Corpuscular Hemoglobin Concent 35 32-36 g/dL Red Cell Distribution Width 12.9 10.0-14.5 % Platelet Count 161 130-400 10^3/uL Mean Platelet Volume 11.8 9.0-12.2 fL Immature Granulocyte % (Auto) 0 % Neutrophils (%) (Auto) 46 42-75 % Lymphocytes (%) (Auto) 43 12-44 % Monocytes (%) (Auto) 11 0-12 % Eosinophils (%) (Auto) 0 0-10 % Basophils (%) (Auto) 0 0-10 % Neutrophils # (Auto) 3.2 1.8-7.8 10^3/uL Lymphocytes # (Auto) 3.0 1.0-4.0 10^3/uL Monocytes # (Auto) 0.7 0.0-1.0 10^3/uL Eosinophils # (Auto) 0.0 0.0-0.3 10^3/uL Basophils # (Auto) 0.0 0.0-0.1 10^3/uL Immature Granulocyte # (Auto) 0.0 0.0-0.1 10^3/uL Neutrophils % (Manual) 58 % Lymphocytes % (Manual) 6 % Monocytes % (Manual) 4 % Band Neutrophils 1 % Reactive Lymphocytes 31 % Smudge Cells SLIGHT Sodium Level 144 135-145 MMOL/L Potassium Level 4.1 3.6-5.0 MMOL/L Chloride Level 98 98-107 MMOL/L Carbon Dioxide Level 32 21-32 MMOL/L Anion Gap 14 5-14 MMOL/L Blood Urea Nitrogen 12 7-18 MG/DL Creatinine 1.11 0.60-1.30 MG/DL Estimat Glomerular Filtration Rate 85 BUN/Creatinine Ratio 11 Glucose Level 120 H 70-105 MG/DL Calcium Level 10.1 8.5-10.1 MG/DL My Orders Orders - MIMI LOPES MD Ed Iv/Invasive Line Start (06/27/22 10:41) Cbc With Automated Diff (06/27/22 10:41) Basic Metabolic Panel (06/27/22 10:41) Hydroxyzine Cap/Tab (Vistaril) (06/27/22 10:45) Manual Differential (06/27/22 10:30) Lorazepam Injection (Ativan Injection) (06/27/22 11:15) Medications Given in ED Current Medications Medications Dose Ordered Sig/Cale Route Start Time Stop Time Status Last Admin Dose Admin Hydroxyzine Pamoate 25 mg ONCE ONCE PO 06/27/22 10:45 06/27/22 10:46 DC 06/27/22 10:49 25 MG Lorazepam 1 mg ONCE ONCE IVP 06/27/22 11:15 06/27/22 11:16 DC 06/27/22 11:19 1 MG Vital Signs/I&O 06/27/22 10:28 Temp 36.3 Pulse 71 Resp 16 B/P (MAP) 136/113 (121) Pulse Ox 96 O2 Delivery Room Air Capillary Refill : Progress Note : Time: 12:20 Progress Note Patient seen and evaluated by me. Evaluation today includes physical exam, CBC and basic metabolic panel. Pertinent physical exam findings, 41-year-old male in significant distress due to what appears to be panic/anxiety. Short shallow rapid respirations. Pressured speech. Tearful. Noted to have carpopedal spasm in both hands. Complaining of abdominal cramping with soft abdomen, bowel sounds present. Differential diagnosis panic attack, acute pulmonary embolism. Labs reviewed, CBC and basic metabolic panel are completely normal. He was treated initially with 25 mg of Vistaril which really did not help his symptoms. I gave an additional 1/2 mg of Ativan. He is reevaluated at this time and much improved. Respirations are improved, pulse ox remained stable at 97% on room air. Heart rate is down in the 50s, blood pressure is down significantly. He feels much better. No clinical or objective findings to warrant further studies from the emergency department. At no point did he have actual chest pain or anginal-like symptoms. He is asking for a prescription for anxiety/panic. I offered Vistaril. He is agreeable. He has a follow-up appointment scheduled with his primary care provider next Saturday. Return precautions are provided. He verbalized understanding. All questions are sought and answered. Departure Impression Primary Impression: Panic attack Disposition: HOME, SELF-CARE Condition: Improved Departure-Patient Inst. Decision time for Depature: 12:23 Referrals: [facility] [place] Primary Care Physician Patient Instructions: Panic Attack ED Add. Discharge Instructions: Continue prescriptions as directed by your primary care physician. You can take the hydroxyzine 1 tablet every 8 hours as needed for feelings of anxiety and panic that may develop. This medication may make you a little sleepy. Please keep your follow-up appointment with your primary care doctor for next Saturday. Return to the emergency department for any new, concerning or emergent complaints. Scripts Hydroxyzine HCl (Hydroxyzine HCl) 25 Mg Tablet 25 MG PO Q8H PRN for anxiety, #20 TAB Prov: MIMI LOPES MD 06/27/22 Work/School Note: Work Release Form Date Seen in the Emergency Department: Jun 27, 2022 Return to Work: Jun 28, 2022 Copy Copies To 1: NAGA GONZALES KATHRYN M MD Jun 27, 2022 10:37
[2022-06-27] MEDS ORDERED: hydrOXYzine (VISTARIL/ATARAX) 25 MG capsule/tablet PO ONE (10:45)
[2022-06-27 10:47] LABS: BASOPHILS % (AUTO) 0 % (0-10); EOSINOPHILS % (AUTO) 0 % (0-10); HEMATOCRIT 47 % (40-54); HEMOGLOBIN 16.6 g/dL (13.3-17.7); LYMPHOCYTES % (AUTO) 43 % (12-44); MEAN CORPUSCULAR HEMOGLOBIN 31 pg (25-34); MEAN CORPUSCULAR HGB CONC 35 g/dL (32-36); MEAN CORPUSCULAR VOLUME 89 fL (80-99); MEAN PLATELET VOLUME 11.8 fL (9.0-12.2); MONOCYTES # (AUTO) 0.7 10^3/uL (0.0-1.0); MONOCYTES % (AUTO) 11 % (0-12); NEUTROPHILS # (AUTO) 3.2 10^3/uL (1.8-7.8); NEUTROPHILS % (AUTO) 46 % (42-75); PLATELET COUNT 161 10^3/uL (130-400); WHITE BLOOD COUNT 6.9 10^3/uL (4.3-11.0)
[2022-06-27 10:55] LABS: POTASSIUM 4.1 MMOL/L (3.6-5.0)
[2022-06-27 10:56] LABS: CALCIUM 10.1 MG/DL (8.5-10.1)
[2022-06-27 11:01] LABS: CREATININE SERUM 1.11 MG/DL (0.60-1.30)
[2022-06-27] MEDS ORDERED: LORazepam INJ 2 MG/ML (ATIVAN) VIAL IVP ONE (11:15)
[2022-06-27 11:24] LABS: BAND NEUTROPHILS 1 %; LYMPHOCYTES % (MANUAL) 6 %; MONOCYTES % (MANUAL) 4 %; NEUTROPHILS % (MANUAL) 58 %; REACTIVE LYMPHOCYTES 31 %
[2022-06-27] MEDS ORDERED: HYDR-700 PO (12:24)
[2022-06-27 12:45] VITALS: BP 129/88
== END 2022-06-27 12:46 | disposition home or self-care (01) ==
LOC: EDUNIT# 10:27 → ER 10:29
DX: F41.0 Panic disorder [episodic paroxysmal anxiety] (principal)
CPT/HCPCS: 36415; 80048; 85007; 85027